=== PATIENT | female | born 1990 | race Caucasian/White ===

== ENCOUNTER 2017-01-05 06:33 | Outpatient (CLI) ==
[2015-09-08 11:12] VITALS: BMI 17.2
[2017-01-05 08:34] LABS: BASOPHILS % (AUTO) 0.6 % (0.0-3.0); EOSINOPHILS # (AUTO) 0.1 K/ul (0.0-0.7); EOSINOPHILS % (AUTO) 2.4 % (0.0-7.0); HEMATOCRIT 35.6 % (37.0-47.0); HEMOGLOBIN 12.2 g/dl (12.0-16.0); IMMATURE GRANULOCYTE % (AUTO) 0.9 % (0.0-5.0); IMMATURE RETIC FRACTION 11.2; LYMPHOCYTES # (AUTO) 0.8 K/uL (0.60-3.4); LYMPHOCYTES % (AUTO) 15.3 (10.0-50.0); MEAN CORPUSCULAR HEMOGLOBIN 32.2 pg (27.0-31.0); MEAN CORPUSCULAR HGB CONC 34.3 (31.8-35.4); MEAN CORPUSCULAR VOLUME 93.9 fl (81.0-99.0); MONOCYTES # (AUTO) 0.4 K/uL (0.4-2.0); MONOCYTES % (AUTO) 6.5 (0-10); NEUTROPHILS % (AUTO) 74.3; PLATELET COUNT 116 10^3/uL (140-440); RED BLOOD COUNT 3.79 10^6/ul (4.20-5.40); RETICULOCYTE % 1.52 %; WHITE BLOOD COUNT 5.41 K/ul (4.6-10.2)
--- NOTE | 2017-01-05 09:09 | ECHO2D ---
Date of Exam: 01/05/17 [facility] Reason for Echo: HEART MURMUR, HEART SURGERY M-Mode Normal Adult Results LV Dimensions Normal Adult Results AoV Opening excursions >1.6 >1.6 LVEDD-base- 3.5-5.8 5.1 Ao root dimensions 2.0-3.7 4.0 LVESD-base- 3.1-4.6 L. Atrium dimensions 1.9-3.8 2.8 Post. Wall thickness 0.8-1.1 0.9 IV septum (thickness) 0.7-1.2 0.8 Post. Wall excursion 0.72-1.3 NORMAL Septal motion NORMAL Systolic motion R. Ventricular cavity 1.5-2.0 NORMAL LVEF 60% 59% Paradoxical septal wall motion NORMAL 2-D : MITRAL VALVE PROLAPSE NOTED--LATE SYSTOLIC, NORMAL LEFT VENTRICULAR CONTRACTILITY--NO EFFUSION, NO THROMBUS, NORMAL LEFT VENTRICLE AND LEFT ATRIAL SIZE COLOR FLOW: MODERATE AORTIC STENOSIS M-MODE: MV: MITRAL VALVE PROLAPSE--LATE SYSTOLIC AV: NORMAL TV: NORMAL PV: CHAMBER SIZE: NORMAL WALL MOTION: NORMAL PERICARDIUM: NORMAL INTERPRETATION: 1. MITRAL VALVE PROLAPSE--LATE SYSTOLIC 2. MODERATE AORTIC REGURGITATION 3. MILDLY DILATED AORTIC ROOT 4. NORMAL LEFT VENTRICULAR CONTRACTILITY MTDD
[2017-01-05 09:28] LABS: ALANINE AMINOTRANSFERASE < 6 U/L (12-78); ALBUMIN 4.1 g/dL (3.4-5.0); ALBUMIN/GLOBULIN RATIO 1.32; ALKALINE PHOSPHATASE 68 U/L (42-98); ASPARTATE AMINO TRANSFERASE 13 U/L (15-37); BILIRUBIN,TOTAL 1.07 mg/dL (0.00-1.20); BLOOD UREA NITROGEN 12 mg/dL (7-18); BUN/CREATININE RATIO 15.58; CALCIUM 9.2 mg/dL (8.2-10.2); CARBON DIOXIDE 29 mmol/L (21-32); CHLORIDE 102 mmol/L (98-107); CHOL/HDL RATIO 2.9 (4.5-5.5); CHOLESTEROL 181 mg/dL (0-200); CREATININE 0.77 mg/dL (0.60-1.30); FERRITIN 29.41 ng/mL (4.63-204.00); FOLATE 7.5 ng/mL (3.1-20.5); GLUCOSE 84 mg/dL (70-110); HDL CHOLESTEROL 63 mg/dL (35-80); IRON 96 ug/dL (50-170); SODIUM 140 mmol/L (136-145); TOTAL IRON BINDING CAPACITY 289 ug/dL (240-450); TOTAL PROTEIN 7.2 g/dL (6.4-8.2); TRIGLYCERIDES 85 mg/dL (30-150); VLDL CHOLESTEROL 17 mg/dL (2-30)
[2017-01-06 07:28] LABS: TRANSFERRIN 244 mg/dL (200-370)
== END 2017-01-05 06:34 | disposition home or self-care (01) ==
LOC: CAR 06:33
PROVIDERS: ATTEND Nurse Practitioner Family
DX: R19.5 Other fecal abnormalities (principal); R63.4 Abnormal weight loss; Z86.2 Personal history of diseases of the blood and blood-forming organs and certain disorders involving the immune mechanism; R01.1 Cardiac murmur, unspecified; Z98.890 Other specified postprocedural states
CPT/HCPCS: 36415; 80053; 80061; 82607; 82728; 82746; 83540; 83550; 84443; 84466; 85025; 85045; 87015; 87045; 87899; 89055

== ENCOUNTER → 2017-02-23 | Outpatient (POV) ==
[2015-09-08 11:12] VITALS: BMI 17.2
== END ==
LOC: OUTPT 00:01
PROVIDERS: ATTEND Otolaryngology
DX: H91.90 Unspecified hearing loss, unspecified ear (principal)

== ENCOUNTER 2017-04-15 16:21 | Outpatient (CLI) ==
[2015-09-08 11:12] VITALS: BMI 17.2
[2017-04-15 16:36] LABS: BASOPHILS % (AUTO) 0.4 % (0.0-3.0); EOSINOPHILS # (AUTO) 0.1 K/ul (0.0-0.7); EOSINOPHILS % (AUTO) 2.3 % (0.0-7.0); HEMATOCRIT 37.8 % (37.0-47.0); HEMOGLOBIN 12.9 g/dl (12.0-16.0); IMMATURE GRANULOCYTE % (AUTO) 0.2 % (0.0-5.0); LYMPHOCYTES # (AUTO) 1.3 K/uL (0.60-3.4); LYMPHOCYTES % (AUTO) 24.5 (10.0-50.0); MEAN CORPUSCULAR HEMOGLOBIN 32.3 pg (27.0-31.0); MEAN CORPUSCULAR HGB CONC 34.1 (31.8-35.4); MEAN CORPUSCULAR VOLUME 94.7 fl (81.0-99.0); MONOCYTES # (AUTO) 0.3 K/uL (0.4-2.0); MONOCYTES % (AUTO) 6.5 (0-10); NEUTROPHILS # (AUTO) 3.5 K/ul (2.0-6.9); NEUTROPHILS % (AUTO) 66.1; PLATELET COUNT 134 10^3/uL (140-440); RED BLOOD COUNT 3.99 10^6/ul (4.20-5.40); WHITE BLOOD COUNT 5.23 K/ul (4.6-10.2)
[2017-04-15 16:54] LABS: ALANINE AMINOTRANSFERASE < 6 U/L (12-78); ALBUMIN 4.1 g/dL (3.4-5.0); ALBUMIN/GLOBULIN RATIO 1.11; ALKALINE PHOSPHATASE 60 U/L (42-98); ANION GAP 17.7; ASPARTATE AMINO TRANSFERASE 17 U/L (15-37); BILIRUBIN,TOTAL 0.67 mg/dL (0.00-1.20); BLOOD UREA NITROGEN 10 mg/dL (7-18); BUN/CREATININE RATIO 13.15; CALCIUM 9.2 mg/dL (8.2-10.2); CARBON DIOXIDE 20 mmol/L (21-32); CHLORIDE 106 mmol/L (98-107); CREATININE 0.76 mg/dL (0.60-1.30); GLUCOSE 73 mg/dL (70-110); POTASSIUM 3.7 mmol/L (3.5-5.10); SODIUM 140 mmol/L (136-145); TOTAL PROTEIN 7.8 g/dL (6.4-8.2)
== END 2017-04-15 16:22 | disposition home or self-care (01) ==
LOC: LAB 16:21
PROVIDERS: ATTEND Nurse Practitioner Family
DX: D61.818 Other pancytopenia (principal); E53.8 Deficiency of other specified B group vitamins
CPT/HCPCS: 36415; 80053; 82607; 85025

== ENCOUNTER 2017-07-29 10:44 | Outpatient (CLI) ==
[2015-09-08 11:12] VITALS: BMI 17.2
--- NOTE | 2017-07-29 13:00 | CT ---
EXAM: CT chest without contrast HISTORY: Shortness of breath COMPARISON: 09/08/2015 TECHNIQUE: CT chest performed without intravenous contrast. Coronal and sagittal reformatted images obtained. FINDINGS: Thoracic inlet unremarkable. Heart normal in size. Ectasia ascending thoracic aorta marilin uring up to 3.7 cm, unchanged. There aberrant origin of the right subclavian artery that courses pos terior to the esophagus. Evaluation for lymphadenopathy limited without contrast. No lymphadenopath y identified. Granulomatous calcification. Visualized portion upper abdomen demonstrates no acute a bnormality. No acute abnormalities of the bones. Central airway patent. Mild bibasilar subsegmenta l atelectasis. No airspace consolidation. No pleural effusion. No pneumothorax. IMPRESSION: 1. Mild bibasilar subsegmental atelectasis. Otherwise, no acute cardiopulmonary process. 2. Ectasia ascending aorta measuring up to 3.7 cm, unchanged. 3. Aberrant origin of the right subclavian artery noted.
== END 2017-07-29 10:45 | disposition home or self-care (01) ==
LOC: RAD 10:44
PROVIDERS: ATTEND Emergency Medicine
DX: R00.2 Palpitations (principal); R10.84 Generalized abdominal pain; R06.02 Shortness of breath; I35.1 Nonrheumatic aortic (valve) insufficiency; Z86.69 Personal history of other diseases of the nervous system and sense organs; Z98.890 Other specified postprocedural states
CPT/HCPCS: 36415; 80053; 81025; 84436; 84443; 84479; 85025

== ENCOUNTER 2017-08-05 11:30 | Outpatient (CLI) ==
[2015-09-08 11:12] VITALS: BMI 17.2
--- NOTE | 2017-08-05 12:55 | CT ---
EXAM: CT of the abdomen pelvis without contrast History: Generalized abdominal pain. Comparison: CT abdomen pelvis 10/10/2015 CT abdomen pelvis 02/04/2013 Technique: Multiplanar CT images through the abdomen pelvis were obtained without the administration of IV contrast Findings: Lung bases are clear. No acute osseous abnormalities. There is a 2.4 cm x 1.0 cm air fill ed structure adjacent to the distal esophagus which is not significantly changed since 2012. No renal stones and no hydronephrosis. The appendix is not dilated or inflamed. Scattered colonic s tool. Mildly distended loops of both large and small bowel but no specific evidence for bowel obstru ction. No free air. No ascites. No bladder wall thickening. Evaluation of the adnexal structures is limited due to lack of contrast administration but demonstrate no gross abnormality. Air is seen in the vagina and cervix. No peripa ncreatic inflammation. Adrenal glands are unremarkable. No focal liver or splenic lesions. No infl ammatory stranding. Impression: 1. Mild ileus but no evidence for bowel obstruction. 2. No inflammatory process. 3. No change in the air-filled structure adjacent to the distal esophagus could represent diverticul um.
== END 2017-08-05 11:31 | disposition home or self-care (01) ==
LOC: RAD 11:30
PROVIDERS: ATTEND Emergency Medicine
DX: R10.84 Generalized abdominal pain (principal)

== ENCOUNTER 2017-08-19 12:29 | Outpatient (CLI) ==
[2015-09-08 11:12] VITALS: BMI 17.2
== END 2017-08-19 12:30 | disposition home or self-care (01) ==
LOC: RHC-LAB 12:29
PROVIDERS: ATTEND Nurse Practitioner Family
DX: R53.83 Other fatigue (principal)
CPT/HCPCS: 36415; 82607; 82728; 82746; 83540; 83550; 84466; 85007; 85025; 85045

== ENCOUNTER 2017-09-20 12:44 | Outpatient (CLI) ==
[2015-09-08 11:12] VITALS: BMI 17.2
== END 2017-09-20 12:45 | disposition home or self-care (01) ==
LOC: CAR 12:44
PROVIDERS: ATTEND Emergency Medicine
DX: R00.2 Palpitations (principal)
CPT/HCPCS: 93227

== ENCOUNTER 2017-10-29 10:39 | Outpatient (CLI) ==
[2015-09-08 11:12] VITALS: BMI 17.2
--- NOTE | 2017-10-29 11:15 | DI ---
EXAM: Two views of the chest. History: Chest pain. Comparison: Chest CT 07/30/2017, chest radiograph 12/24/2014 Findings: Heart size is normal. No focal consolidation. No appreciable pleural fluid and no pneumo thorax. No acute osseous abnormalities. Impression: No acute cardiopulmonary process
--- NOTE | 2017-10-29 11:46 | DI ---
EXAM: Three views of the left ribs. History: Left rib pain. Comparison: Chest radiograph 10/29/2017 Findings: Heart size is normal. Lungs are free of consolidation. No pleural fluid and no pneumotho rax. No rib fractures are identified. There is an S-shaped scoliosis centered within the lower thor acic spine. 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
--- NOTE | 2017-10-29 11:49 | DI ---
EXAM: Three views of the left elbow. History: Left elbow pain. Findings: No acute fracture or dislocation. No abnormal calcifications or radiopaque foreign bodies . Joint spaces are preserved. Mild posterior soft tissue swelling. Impression: No acute osseous abnormality. Mild posterior soft tissue swelling.
== END 2017-10-29 10:40 | disposition home or self-care (01) ==
LOC: RAD 10:39
PROVIDERS: ATTEND Emergency Medicine
DX: R07.2 Precordial pain (principal); R07.81 Pleurodynia; M25.522 Pain in left elbow

== ENCOUNTER 2017-11-12 12:15 | Outpatient (CLI) ==
[2015-09-08 11:12] VITALS: BMI 17.2
== END 2017-11-12 12:16 | disposition home or self-care (01) ==
LOC: RHC-LAB 12:15
PROVIDERS: ATTEND Emergency Medicine
DX: M54.6 Pain in thoracic spine (principal); D61.818 Other pancytopenia
CPT/HCPCS: 36415; 85025

== ENCOUNTER 2018-02-10 08:56 | Outpatient (CLI) ==
[2015-09-08 11:12] VITALS: BMI 17.2
--- NOTE | 2018-02-10 11:49 | MRI ---
EXAM: MRI brain without and with IV contrast. DATE: 10 February 2018. HISTORY: Epilepsy, non intractable. Seizures. TECHNIQUE: Sagittal T1W pre and postcontrast, axial T2W, axial FLAIR, axial T1W pre and postcontrast , axial DWI, coronal T1W postcontrast, and coronal T2W GRE sequences of the brain were obtained using 1.2 Trini magnet. Additional coronal thin slice FLAIR sequence through the temporal lobes was perfo rmed. CONTRAST: Omniscan - 8 ml IV. COMPARISON: CT head 08 Sep 2015. MRI brain 01 January 2016. FINDINGS: The ventricles, cisterns, and subarachnoid spaces are normal in size and configuration. N o midline shift, mass effect or abnormal extra-axial fluid collection is apparent. No acute infarct, hemorrhage or enhancing neoplasm is identified. No abnormal contrast enhancement is identified in t he brain, meninges or dura. Several 2-5 mm diameter, T2W/FLAIR bright, non-enhancing foci scattered in the babin radiata and subcortical white matter bilaterally are similar to December 2015. The knowles - white matter differentiation is normal. No migration or diverticulation abnormality is identified. The amygdala, hippocampus, and parahippocampal gyri are similar bilaterally. The 7th/8th cranial n erve complexes, cerebellopontine angles, brainstem, and visible cervical spinal cord are normal. Cer ebellar tonsils extend near the inferior margin of the foramen magnum. There is no cerebellar tonsil lar ectopia. The pituitary gland is normal in size and signal. Corpus callosum is normal in size an d configuration. Right vertebral artery appears to be a tube in size. Flow voids are present in the major intracranial arteries and in the dural venous sinuses. No aneurysm, AVM or dural venous sinus thrombosis is apparent. No orbit abnormality is identified. The mastoid air cells are unremarkable . There is multiple ethmoid air cells are opacified. Minor/mild mucosal thickening is seen in the i nferior aspect of each maxillary sinus. No neck mass or lymphadenopathy is detected. No calvarial n eoplasm or acute fracture is evident. IMPRESSIONS: 1. No acute infarct, hemorrhage, enhancing neoplasm, or hydrocephalus. 2. No convincing evidence of mesial temporal sclerosis. 3. Minor, nonspecific cerebral leukomalacia similar to December 2015. 4. 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
== END 2018-02-10 08:57 | disposition home or self-care (01) ==
LOC: RAD 08:56
PROVIDERS: ATTEND Psychiatry & Neurology Neurology
DX: G40.909 Epilepsy, unspecified, not intractable, without status epilepticus (principal); Z79.899 Other long term (current) drug therapy
CPT/HCPCS: 36415; 82565

== ENCOUNTER 2018-02-24 12:41 | Outpatient (CLI) ==
[2015-09-08 11:12] VITALS: BMI 17.2
--- NOTE | 2018-02-24 16:49 | DI ---
Exam: Left tibia and fibula two-view. HISTORY: Pain and left lower leg. Findings/impressions: Anterior and lateral images of the left tibia and fibula are submitted, four i mages in total. These demonstrate no acute fracture or dislocation. There is no osseous erosion or radiodense foreign body. Pain: The alignment appears maintained. There is no focal soft tissue swe lling.
--- NOTE | 2018-02-24 16:51 | DI ---
Exam: Left foot three-view. HISTORY: Pain in left lower leg. FINDINGS: Three views of the left foot demonstrate no evidence of acute fracture or dislocation. Th ere is no osseous erosion or radiodense foreign body. There is no significant soft tissue swelling v isualized. IMPRESSION: No acute fracture or dislocation involving the left foot.
== END 2018-02-24 12:42 | disposition home or self-care (01) ==
LOC: RAD 12:41
PROVIDERS: ATTEND Nurse Practitioner Family
DX: M79.662 Pain in left lower leg (principal); M79.672 Pain in left foot

== ENCOUNTER 2018-03-15 14:54 | Emergency (ER) ==
[2018-03-15 14:59] VITALS: BP 97/66; TEMP 99.4; BMI 16.8
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
== END 2018-03-15 20:00 | disposition left against medical advice (07) ==
LOC: ED 14:54
DX: T74.21XA Adult sexual abuse, confirmed, initial encounter (principal); R07.89 Other chest pain; R10.9 Unspecified abdominal pain; D64.9 Anemia, unspecified
CPT/HCPCS: 36415; 80053; 85025; 99283

== ENCOUNTER 2018-06-03 14:00 | Emergency (ER) ==
[2018-06-03 14:14] VITALS: BP 94/69; TEMP 98.4; BMI 16.1
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
== END 2018-06-03 15:58 | disposition home or self-care (01) ==
LOC: ED 14:00
DX: N39.0 Urinary tract infection, site not specified (principal); T76.21XA Adult sexual abuse, suspected, initial encounter; R30.0 Dysuria
CPT/HCPCS: 36415; 81001; 87086; 87186; 87389; 87800; 99283

== ENCOUNTER 2018-06-03 14:41 | Outpatient (CLI) ==
[2018-06-03 14:14] VITALS: BMI 16.1
== END 2018-06-03 14:42 | disposition home or self-care (01) ==
LOC: RHC-LAB 14:41 → FCC-LAB 14:42
PROVIDERS: ATTEND Family Medicine
DX: R30.0 Dysuria (principal)
CPT/HCPCS: 87086; 87186

== ENCOUNTER 2018-06-15 09:47 | Emergency (ER) ==
[2018-06-15 09:54] VITALS: BP 95/63; TEMP 99; BMI 16.3
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
== END 2018-06-15 12:12 | disposition home or self-care (01) ==
LOC: ED 09:47
DX: S80.11XA Contusion of right lower leg, initial encounter (principal); W50.0XXA Accidental hit or strike by another person, initial encounter
CPT/HCPCS: 99283

== ENCOUNTER 2018-06-23 11:47 | Outpatient (CLI) | END 2018-06-23 11:48 | disposition home or self-care (01) | LOC: RHC-LAB 11:47 → FCC-LAB 11:48 | PROVIDERS: ATTEND Nurse Practitioner Family | DX: R30.0 Dysuria (principal) | CPT/HCPCS: 81001; 87086 ==

== ENCOUNTER 2018-06-29 08:16 | Outpatient (CLI) ==
--- NOTE | 2018-06-29 08:52 | US ---
EXAM: Bilateral breast ultrasound. History: Bilateral breast palpable abnormalities. Technique: Multiple sonographic images through the bilateral breasts were obtained. Color duplex Do ppler was used to interrogate vascular flow. Findings: No masses, cysts or fluid collections identified. Impression: No sonographic abnormalities. Follow-up with ACR/ACS guidelines. BIRADS 1, negative
== END 2018-06-29 08:17 | disposition home or self-care (01) ==
LOC: RAD 08:16
PROVIDERS: ATTEND Nurse Practitioner Family
DX: N63.12 Unspecified lump in the right breast, upper inner quadrant (principal); N63.22 Unspecified lump in the left breast, upper inner quadrant; N63.0 Unspecified lump in unspecified breast; N64.4 Mastodynia

== ENCOUNTER 2018-08-16 10:47 | Outpatient (CLI) ==
[2018-08-16 11:02] VITALS: BMI 15.7
== END 2018-08-16 10:53 | disposition critical access hospital (66) ==
LOC: AMBL 10:47
PROVIDERS: ATTEND Emergency Medicine
DX: M25.552 Pain in left hip (principal); M54.5 Low back pain; M25.571 Pain in right ankle and joints of right foot; V09.9XXA Pedestrian injured in unspecified transport accident, initial encounter

== ENCOUNTER 2018-08-16 10:57 | Emergency (ER) ==
[2018-08-16 11:02] VITALS: BP 99/73; TEMP 97.2; BMI 15.7
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
[2018-08-16 11:55] LABS: URINE PREGNANCY TEST NEGATIVE (NEGATIVE)
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
--- NOTE | 2018-08-16 12:30 | DI ---
EXAM: Three views of the thoracic spine. History: Thoracic back trauma. Findings: Scoliosis. No acute fracture or subluxation of the thoracic spine. Disc space heights ar e preserved. Impression: No acute osseous abnormality
--- NOTE | 2018-08-16 12:30 | DI ---
EXAM: Two views of the chest. History: Upper posterior chest wall pain. Comparison: Chest radiograph 10/29/2017 Findings: Heart size is normal. No focal consolidation. No appreciable pleural fluid and no pneumo thorax. No acute osseous abnormalities. Nonspecific air distended loops of bowel within the upper a bdomen. Impression: No acute cardiopulmonary process
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
== END 2018-08-16 12:50 | disposition home or self-care (01) ==
LOC: ED 10:57
DX: M25.571 Pain in right ankle and joints of right foot (principal); M54.6 Pain in thoracic spine; R07.89 Other chest pain; S90.31XA Contusion of right foot, initial encounter; S96.911A Strain of unspecified muscle and tendon at ankle and foot level, right foot, initial encounter; S29.019A Strain of muscle and tendon of unspecified wall of thorax, initial encounter
CPT/HCPCS: 36415; 80053; 81001; 81025; 85007; 85025; 87086; 99283

== ENCOUNTER 2018-08-31 12:33 | Emergency (ER) ==
[2018-08-31 12:43] VITALS: BP 98/69; TEMP 99.1; BMI 15.6
[2018-08-31 13:38] LABS: URINE PREGNANCY TEST NEGATIVE (NEGATIVE)
--- NOTE | 2018-08-31 14:25 | CT ---
EXAM: CT abdomen pelvis without contrast HISTORY: Vomiting, weakness, abdominal pain, worms and stool COMPARISON: 08/06/2079 TECHNIQUE: CT abdomen pelvis performed without intravenous contrast. Coronal and sagittal reformatt ed images obtained. FINDINGS: Lung bases clear. No free air. No acute abnormalities of the bones. Limbus vertebra L5. The heart normal in size. Evaluation organ parenchyma limited without contrast. Liver unremarkabl e. Gallbladder unremarkable. Pancreas unremarkable. Spleen unremarkable. Adrenals unremarkable. Kidneys unremarkable. No calculi visualized in normal course of the ureters. Bladder only mildly di stended and poorly very, grossly unremarkable. Uterus unremarkable. Aorta normal in caliber. No ly mphadenopathy or ascites. Similar appearing air-filled structure adjacent to the distal esophagus. Stomach unremarkable. No dilated loops small bowel. Increased densities in the appendix may relate to retains secretions versus appendicolith. Appendix otherwise appears normal with no evidence for a ppendicitis. Colon unremarkable. No inflammatory stranding identified in the abdomen pelvis. IMPRESSION: 1. No acute abnormality identified in the abdomen or pelvis. 2. Similar appearing air-filled structure adjacent to the distal esophagus could relate to a diverti culum. 3. Increased densities in the appendix may relate to retained secretions versus appendicolith. No e vidence for appendicitis.
--- NOTE | 2018-08-31 14:49 | ED.PDOC ---
General ED Provider: Dr. BETZAIDA WOOD Chief Complaint: Abdominal Pain Stated Complaint: ABDOMINAL PAIN MAY HAVE SEEN SOME WORMS IN STOOL Time Seen by Physician: 12:40 Mode of Arrival: Walk-In Information Source: Patient Exam Limitations: No limitations Primary Care Provider: CHARLEE ALEXIS Nursing and Triage Documentation Reviewed and Agree: Yes Does patient meet sepsis criteria?: No System Inflammatory Response Syndrome: Not Applicable Sepsis Protocol: For patient's 13 years and over: Temp is 96.8 and below OR 101 and greater Pulse >90 BPM Resp >20/minute Acutely Altered Mental Status Are patient's symptoms suggestive of a new infection, such as: -Pneumonia -Skin, Soft Tissue -Endocarditis -UTI -Bone, Joint Infection -Implantable Device -Acute Abdominal Infection -Wound Infection -Meningitis -Blood Stream Catheter Infection -Unknown GI Complaint Exam - Abdominal Pain Complaint/Exam Onset: Gradual Duration: 2 DAYS Initial Severity: Moderate Current Severity: None Location of Pain: Diffuse Radiates To: Denies: Chest, Back, Flank, LLQ, RLQ Character: Reports: Dull Aggravating: Reports: None Alleviating: Reports: None Associated Signs and Symptoms: Denies: Diaphoresis, Fever, Cough, Chest pain, Dizziness, Back pain, Constipation (POSSIBLE WORMS NONE PRESENT TO md at visit ) , Blood in stool, Dysuria, Urinary frequency, Decreased urine output, Decreased appetite, Vaginal bleeding, Vaginal discharge, Nausea, Vomiting, Diarrhea, Sore throat, Decreased activity Related History: Reports: Similar episode (chronic issue) AAA Risk Factors: Reports: None Cardiac Risk Factors: Reports: None Ectopic Risk Factors: Reports: None Ovarian Torsion Risk Factors: Reports: None Surgical Obstruction Risk Factors: Reports: None Related Surgical History: Reports: None Abdominal Findings: Present: None Differential Diagnoses: Bowel Obstruction, Constipation, Gastroenteritis, PUD, UTI Review of Systems - Review Of Systems Constitutional: Reports: No symptoms Eyes: Reports: No symptoms Ears, Nose, Mouth, Throat: Reports: No symptoms Respiratory: Reports: No symptoms Cardiac: Reports: No symptoms GI: Reports: Abdominal pain : Reports: No symptoms Musculoskeletal: Reports: No symptoms Skin: Reports: No symptoms Neurological: Reports: No symptoms Endocrine: Reports: No symptoms Hematologic/Lymphatic: Reports: No symptoms All Other Systems: Reviewed and Negative Past Medical History - Past Medical History Previously Healthy: Yes Endocrine: Reports: None Cardiovascular: Reports: None Respiratory: Reports: None Hematological: Reports: Anemia ( jun 2013 hgb was 10.4) Gastrointestinal: Reports: None Genitourinary: Reports: None Neuro/Psych: Reports: Bipolar Disorder Musculoskeletal: Reports: None Cancer: Reports: None Last Menstrual Period: 08/22/18 - Surgical History General Surgical History: Reports: Unknown - Family History Family History: Reports: Unknown - Social History Smoking Status: Never smoker Hx Substance Use: No Alcohol Screening: None Physical Exam - Physical Exam Appearance: Well-appearing, No pain distress, Well-nourished Eyes: ROBBIE, EOMI, Conjunctiva clear ENT: Ears normal, Nose normal, Oropharynx normal Respiratory: Airway patent, Breath sounds clear, Breath sounds equal, Respirations nonlabored Cardiovascular: RRR, Pulses normal, No rub, No murmur GI/: Soft, Nontender, No masses, Bowel sounds normal, No Organomegaly Musculoskeletal: Normal strength, ROM intact, No edema, No calf tenderness Skin: Warm, Dry, Normal color Neurological: Sensation intact, Motor intact, Reflexes intact, Cranial nerves intact, Alert, Oriented Psychiatric: Affect appropriate, Mood appropriate Interpretation - Radiology Interpretation Radiology Interpretation By: Radiologist Radiology Results: No acute changes Re-Evaluation - Re-Evaluation Time of Re-Evaluation: 14:00 Status: Improved Vital Signs Stable: Yes Pain Level: 0 Appearance: NAD Lungs: Clear Skin: Warm and Dry Neuro: Alert and Oriented X3 CV: RRR Additional Comments: no stools produced in the - Re-Evaluation Time of Re-Evaluation: 14:50 Status: Improved Vital Signs Stable: Yes Pain Level: 0 Appearance: NAD Skin: Warm and Dry Neuro: Alert and Oriented X3 CV: RRR Critical Care Note - Critical Care Note Total Time (mins): 0 Course - Course Hematology/Chemistry: 08/31/18 13:10 08/31/18 13:10 Orders, Labs, Meds: Lab Review 08/31/18 08/31/18 08/31/18 13:10 13:10 13:15 WBC 4.07 L RBC 3.73 L Hgb 11.7 L Hct 34.5 L MCV 92.5 MCH 31.4 H MCHC 33.9 RDW Coeff of Aidan 11.9 Plt Count 112 L Immature Gran % (Auto) 0.2 Neut % (Auto) 70.6 Lymph % (Auto) 20.9 [place] % (Auto) 6.6 Eos % (Auto) 1.5 Baso % (Auto) 0.2 Immature Gran # (Auto) 0.0 Neut # (Auto) 2.9 Lymph # (Auto) 0.9 [place] # (Auto) 0.3 L Eos # (Auto) 0.1 Baso # (Auto) 0.0 Sodium 138.6 Potassium 3.72 Chloride 102.0 Carbon Dioxide 27.4 Anion Gap 12.92 BUN 10.2 Creatinine 0.79 Estimated GFR (MDRD) 87.00 BUN/Creatinine Ratio 12.91 Glucose 80.4 Calcium 8.74 Total Bilirubin 1.04 AST 18.2 ALT 7.0 Alkaline Phosphatase 52.1 Total Protein 6.89 Albumin 4.66 Globulin 2.23 Albumin/Globulin Ratio 2.08 Amylase 56.4 Lipase 64.3 Urine Color Yellow Urine Clarity Cloudy Urine pH 6.5 Ur Specific [place] 1.025 Urine Protein Trace Urine Glucose (UA) Negative Urine Ketones Negative Urine Blood Negative Urine Nitrite Positive Urine Bilirubin Negative Urine Urobilinogen 4.0 Ur Leukocyte Esterase 1+ Urine Microscopic WBC 5-10 Ur Squamous Epith Cells 30-50 Urine Bacteria 1+ Urine Mucus 1+ Urine Test 08/31/18 13:15 WBC RBC Hgb Hct MCV MCH MCHC RDW Coeff of Aidan Plt Count Immature Gran % (Auto) Neut % (Auto) Lymph % (Auto) [place] % (Auto) Eos % (Auto) Baso % (Auto) Immature Gran # (Auto) Neut # (Auto) Lymph # (Auto) [place] # (Auto) Eos # (Auto) Baso # (Auto) Sodium Potassium Chloride Carbon Dioxide Anion Gap BUN Creatinine Estimated GFR (MDRD) BUN/Creatinine Ratio Glucose Calcium Total Bilirubin AST ALT Alkaline Phosphatase Total Protein Albumin Globulin Albumin/Globulin Ratio Amylase Lipase Urine Color Urine Clarity Urine pH Ur Specific [place] Urine Protein Urine Glucose (UA) Urine Ketones Urine Blood Urine Nitrite Urine Bilirubin Urine Urobilinogen Ur Leukocyte Esterase Urine Microscopic WBC Ur Squamous Epith Cells Urine Bacteria Urine Mucus Urine Test Negative Orders Category Date Time Status AMYLASE Stat LAB 08/31/18 13:10 Completed CBC W/ AUTO DIFF Stat LAB 08/31/18 13:10 Completed COMPREHENSIVE METABOLIC PANEL Stat LAB 08/31/18 13:10 Completed LIPASE Stat LAB 08/31/18 13:10 Completed URINALYSIS C & S IF INDICATED Stat LAB 08/31/18 13:15 Completed URINE CULTURE Stat LAB 08/31/18 13:15 Received URINE Stat LAB 08/31/18 13:[address] ABDOMEN/PELVIS WO CONTRAST Stat RADS 08/31/18 12:55 Completed Vital Signs: Temp Pulse Resp BP Pulse Ox 08/31/18 12:36 99.1 F 84 18 98/69 99 Departure - Departure Time of Disposition: 14:50 Disposition: HOME SELF-CARE Discharge Problem: Abdominal pain Instructions: Abdominal Pain (ED) Condition: Good Pt referred to PMD for follow-up: Yes IPMP verified?: No Additional Instructions: Please call your Family Physician as soon as possible to schedule a follow-up appointment. Allergies/Adverse Reactions: Allergies Penicillins Adverse Reaction (Verified 08/31/18 12:43) Mother states that pt has never had a reaction to PNC but that mother had a severe reaction over 10 years ago so allergy was always listed on pt as well. Home Medications: Ambulatory Orders Lamotrigine [Lamictal] 75 mg PO BID 03/15/18 Ibuprofen 400 mg PO TID PRN #20 tablet 08/16/18 Disposition Discussed With: Patient
== END 2018-08-31 15:02 | disposition home or self-care (01) ==
LOC: ED 12:33
DX: R10.9 Unspecified abdominal pain (principal); D64.9 Anemia, unspecified
CPT/HCPCS: 36415; 80053; 81001; 81025; 82150; 82607; 82728; 82746; 83540; 83550; 83690; 84466; 85025; 85045; 87086; 87186; 99283

== ENCOUNTER 2018-12-18 16:06 | Outpatient (CLI) | payer OTHER ==
[2018-11-18 12:02] VITALS: BMI 16.1
== END 2018-12-18 16:26 | disposition short-term general hospital (02) ==
LOC: AMBL 16:06
PROVIDERS: ATTEND Family Medicine
DX: R56.9 Unspecified convulsions (principal); R41.0 Disorientation, unspecified; R73.9 Hyperglycemia, unspecified; R00.0 Tachycardia, unspecified

== ENCOUNTER 2019-01-14 20:43 | Outpatient (CLI) ==
[2019-01-10 12:11] VITALS: BMI 16.2
== END 2019-01-14 20:59 | disposition short-term general hospital (02) ==
LOC: AMBL 20:43
PROVIDERS: ATTEND Internal Medicine Geriatric Medicine
DX: T74.21XA Adult sexual abuse, confirmed, initial encounter (principal); R10.2 Pelvic and perineal pain; S79.922A Unspecified injury of left thigh, initial encounter; S79.921A Unspecified injury of right thigh, initial encounter; M79.622 Pain in left upper arm; M79.621 Pain in right upper arm; Y92.9 Unspecified place or not applicable

== ENCOUNTER 2020-10-23 12:55 | Observation (INO) ==
[2020-10-23] MEDS ORDERED: SODIUM CHLORIDE 500 ML IV STA (13:27)
[2020-10-23] MEDS ORDERED: ZOFRAN ODT PO ONE (13:27)
[2020-10-23] MEDS ORDERED: KEPPRA PO ONE (13:27)
[2020-10-23] MEDS ORDERED: TYLENOL PO ONE (13:27)
[2020-10-23 13:49] LABS: BASOPHILS % (AUTO) 0.4 % (0.0-3.0); EOSINOPHILS % (AUTO) 1.5 % (0.0-7.0); HEMATOCRIT 31.5 % (37.0-47.0); IMMATURE GRANULOCYTE % (AUTO) 0.4 % (0.0-5.0); LYMPHOCYTES % (AUTO) 15.4 (10.0-50.0); MEAN CORPUSCULAR HEMOGLOBIN 32.2 pg (27.0-31.0); MEAN CORPUSCULAR HGB CONC 34.9 (31.8-35.4); MEAN CORPUSCULAR VOLUME 92.1 fl (81.0-99.0); MONOCYTES # (AUTO) 0.1 K/uL (0.4-2.0); MONOCYTES % (AUTO) 5.3 (0-10); NEUTROPHILS # (AUTO) 2.1 K/ul (2.0-6.9); PLATELET COUNT 97 10^3/uL (140-440); RDW COEFFICIENT OF VARIATION 12.3 % (11.6-14.8); RED BLOOD COUNT 3.42 10^6/ul (4.20-5.40); WHITE BLOOD COUNT 2.66 K/ul (4.6-10.2)
[2020-10-23 13:55] LABS: ALANINE AMINOTRANSFERASE 6.8 U/L (0-35); ALBUMIN 3.93 g/dL (3.5-5.0); ALKALINE PHOSPHATASE 46.2 U/L (38-126); ASPARTATE AMINO TRANSFERASE 18.7 U/L (14-36); BILIRUBIN,TOTAL 0.53 mg/dL (0.2-1.3); BLOOD UREA NITROGEN 6.6 mg/dL (7-17); CALCIUM 8.3 mg/dL (8.4-10.2); CARBON DIOXIDE 22.1 mmol/L (22-30.0); CHLORIDE 108.6 mmol/L (98-107); CREATININE 0.76 mg/dL (0.60-1.30); GLUCOSE 89.2 mg/dL (74-106); LIPASE 87.7 U/L (23-300); POTASSIUM 3.88 mmol/L (3.5-5.1); SODIUM 138.6 mmol/L (134.5-145); TOTAL PROTEIN 6.05 g/dL (6.3-8.2)
--- NOTE | 2020-10-23 13:57 | ED.PDOC ---
General ED Provider: Dr. JOSÉ MIGUEL PICKETT MD Chief Complaint: Seizure Stated Complaint: pt had a seizure x this PM. she has been taking her seizure meds. Time Seen by Provider: 10/23/20 12:57 Mode of Arrival: Ambulance Information Source: Patient and EMT Exam Limitations: No limitations Primary Care Provider: KAMLESH JUAN Nursing and Triage Documentation Reviewed and Agree: Yes Does patient meet sepsis criteria?: No System Inflammatory Response Syndrome: Not Applicable Sepsis Protocol: For patient's 13 years and over: Temp is 96.8 and below OR 101 and greater Pulse >90 BPM Resp >20/minute Acutely Altered Mental Status Are patient's symptoms suggestive of a new infection, such as: -Pneumonia -Skin, Soft Tissue -Endocarditis -UTI -Bone, Joint Infection -Implantable Device -Acute Abdominal Infection -Wound Infection -Meningitis -Blood Stream Catheter Infection -Unknown Neurological Complaint Exam Seizure Complaint/Exam Onset/Duration: 1 hr Symptoms Are: Resolved Episodes Lasting: Minutes Single or Multiple Episode: single seizure Failed to Regain Consciousness: No Severity: Self-limited Location: All extremities Character: Generalized Alleviating: Reports Spontaneous resolution Associated Signs and Symptoms: Denies Anxiety, Emotional distress, Impaired speech, Bladder incontinence, Bowel incontinence, Trauma, Illness, Vomiting, Lethargy and Apnea Cephalohematoma Present: No Tongue Bitten: No Neck Pain Present: No Glascow Coma Scale (see protocol): 15 Nystagmus Present: No Gag Reflex Present: Yes Speech: Present Slurred (pt has slurred speech) Meningeal Signs Positive: No Focal Weakness: Present None Focal Sensory Loss: Reports None Gait: Normal Signs of Injury: Present Laceration Differential Diagnoses: Metabolic Disorder, Seizure and Seizure Disorder Review of Systems Review Of Systems Constitutional: Reports No symptoms Eyes: Reports No symptoms Ears, Nose, Mouth, Throat: Reports No symptoms Respiratory: Reports No symptoms Cardiac: Reports Chest pain GI: Reports Abdominal pain : Reports No symptoms Musculoskeletal: Reports No symptoms Skin: Reports No symptoms Neurological: Reports Headache Endocrine: Reports No symptoms Hematologic/Lymphatic: Reports No symptoms All Other Systems: Reviewed and Negative [facility] Medical History (Updated 10/23/20 @ 17:37 by JOSÉ MIGUEL PICKETT MD) Hypertension Migraines Seizure Social History Smoking and tobacco status: Never smoker Alcohol intake: never Substance use type: does not use Counseling given: No Counseling provided: none Nydia/adventism: OTHER Special nydia needs: No Agree to transfusion: Yes Adopted: No Caregiver/support person: No Foster care: No Household members: family and children Housing: house Marital status: S SINGLE Lives independently: No Daycare: no daycare Number of children: 2 Number of grandchildren: 0 Highest education level completed: high school graduate Financial difficulty paying for basics: somewhat hard service: No long term: No Current occupational status: disabled Current occupational exposures/hazards: No Sexually active: Yes Seatbelt use: always Drives intoxicated or rides with intoxicated school bus driver/teacher assistant: No Water heater temperature set < 120 degrees: Yes Working smoke detector in home: Yes Fire extinguisher in home: Yes Carbon monoxide detector in home: No Firearms in home: Yes Firearms unloaded and locked: Yes Physical activity functional status: independent ambulation Surgical History History of heart surgery History of musculoskeletal system surgery History of tubal ligation Female Reproductive History Menstrual Hx Hysterectomy: No Hx Tubal Ligation: Yes Physical Exam Physical Exam Appearance: Reports Well-appearing Ill-appearing: None Pain Distress: Mild Eyes: Reports ROBBIE, EOMI and Conjunctiva clear ENT: Reports Ears normal, Nose normal and Oropharynx normal Neck: Supple Respiratory: Reports Airway patent, Breath sounds clear and Breath sounds equal Cardiovascular: Reports RRR, Pulses normal, No rub and No murmur GI/: Reports Soft, Nontender, No masses, Bowel sounds normal and No Organomegaly Musculoskeletal: Reports Normal strength, ROM intact and No edema Skin: Reports Warm, Dry, Normal color and Pale Neurological: Reports Sensation intact, Motor intact, Reflexes intact, Cranial nerves intact, Alert and Oriented Psychiatric: Reports Affect appropriate and Mood appropriate Interpretation Radiology Interpretation Radiology Interpretation By: Radiologist Exam Interpreted: Portable CXR Re-Evaluation Re-Evaluation Time of Re-Evaluation: 13:56 Status: Improved Vital Signs Stable: Yes Pain Level: 1 Appearance: NAD Lungs: Clear Skin: Warm and Dry Neuro: Alert and Oriented X3 CV: RRR Critical Care Note Critical Care Note Total Critical Care Time (mins): 0 Course Course Hematology/Chemistry: 10/23/20 13:38 10/23/20 13:38 Orders, Labs, Meds: Lab Review 10/23/20 10/23/20 10/23/20 13:38 13:38 13:38 WBC 2.66 L RBC 3.42 L Hgb 11.0 L Hct 31.5 L MCV 92.1 MCH 32.2 H MCHC 34.9 RDW Coeff of Aidan 12.3 Plt Count 97 L Immature Gran % (Auto) 0.4 Neut % (Auto) 77.0 H Lymph % (Auto) 15.4 Barron % (Auto) 5.3 Eos % (Auto) 1.5 Baso % (Auto) 0.4 Neut # (Auto) 2.1 Lymph # (Auto) 0.4 L Barron # (Auto) 0.1 L Eos # (Auto) 0.0 Baso # (Auto) 0.0 Immature Gran # (Auto) 0.0 Sodium 138.6 Potassium 3.88 Chloride 108.6 H Carbon Dioxide 22.1 Anion Gap 11.78 BUN 6.6 L Creatinine 0.76 Estimated GFR (MDRD) 89.00 BUN/Creatinine Ratio 8.68 Glucose 89.2 Calcium 8.30 L Total Bilirubin 0.53 AST 18.7 ALT 6.8 Alkaline Phosphatase 46.2 Total Protein 6.05 L Albumin 3.93 Globulin 2.12 Albumin/Globulin Ratio 1.85 Lipase 87.7 Serum , Qual Negative Urine Color Urine Clarity Urine pH Ur Specific [place] Urine Protein Urine Glucose (UA) Urine Ketones Urine Blood Urine Nitrite Urine Bilirubin Urine Urobilinogen Ur Leukocyte Esterase Urine Microscopic WBC Ur Squamous Epith Cells Urine Bacteria Adenovirus (PCR) B. pertussis DNA (PCR) B.parapertussis DNA PCR C. pneumoniae DNA (PCR) Coronavirus OC43 (PCR) Coronavirus HKU1 (PCR) Coronavirus 229E (PCR) Coronavirus NL63 (PCR) Human Metapneumovir PCR Influenza Type A (PCR) Influenza B (RT-PCR) M. pneumoniae (PCR) Parainfluenza 1 (PCR) Parainfluenza 2 (PCR) Parainfluenza 3 (PCR) Parainfluenza 4 (PCR) RSV (PCR) Entero/Rhino (PCR) SARS-CoV-2 (PCR) 10/23/20 10/23/20 16:05 16:28 WBC RBC Hgb Hct MCV MCH MCHC RDW Coeff of Aidan Plt Count Immature Gran % (Auto) Neut % (Auto) Lymph % (Auto) Barron % (Auto) Eos % (Auto) Baso % (Auto) Neut # (Auto) Lymph # (Auto) Barron # (Auto) Eos # (Auto) Baso # (Auto) Immature Gran # (Auto) Sodium Potassium Chloride Carbon Dioxide Anion Gap BUN Creatinine Estimated GFR (MDRD) BUN/Creatinine Ratio Glucose Calcium Total Bilirubin AST ALT Alkaline Phosphatase Total Protein Albumin Globulin Albumin/Globulin Ratio Lipase Serum , Qual Urine Color Yellow Urine Clarity Slightly Urine pH 7.0 Ur Specific [place] 1.025 Urine Protein Negative Urine Glucose (UA) Negative Urine Ketones Negative Urine Blood Negative Urine Nitrite Negative Urine Bilirubin Negative Urine Urobilinogen 0.2 Ur Leukocyte Esterase 1+ H Urine Microscopic WBC 5-10 Ur Squamous Epith Cells 5-10 Urine Bacteria 1+ Adenovirus (PCR) Not detected B. pertussis DNA (PCR) Not detected B.parapertussis DNA PCR Not detected C. pneumoniae DNA (PCR) Not detected Coronavirus OC43 (PCR) Not detected Coronavirus HKU1 (PCR) Not detected Coronavirus 229E (PCR) Not detected Coronavirus NL63 (PCR) Not detected Human Metapneumovir PCR Not detected Influenza Type A (PCR) Not detected Influenza B (RT-PCR) Not detected M. pneumoniae (PCR) Not detected Parainfluenza 1 (PCR) Not detected Parainfluenza 2 (PCR) Not detected Parainfluenza 3 (PCR) Not detected Parainfluenza 4 (PCR) Not detected RSV (PCR) Not detected Entero/Rhino (PCR) Not detected SARS-CoV-2 (PCR) Not detected Orders Category Date Time Status EKG-(ED ONLY) Stat CARDIO 10/23/20 13:27 Completed ED IV/MEDIPORT/POWERPORT .ONCE EMERGENCY 10/23/20 13:27 Active BLOOD CULTURE (ED ONLY) Stat LAB 10/23/20 17:02 Received CBC W/ AUTO DIFF Stat LAB 10/23/20 13:38 Completed COMPREHENSIVE METABOLIC PANEL Stat LAB 10/23/20 13:38 Completed LIPASE Stat LAB 10/23/20 13:38 Completed RESPIRATORY PANEL 2.1 (PCR) Stat LAB 10/23/20 16:28 Completed SERUM Stat LAB 10/23/20 13:38 Completed URINALYSIS C & S IF INDICATED Stat LAB 10/23/20 16:05 Completed URINE CULTURE Stat LAB 10/23/20 16:05 Received 0.9 % Sodium Chloride [Saline Flush] MEDS 10/23/20 13:27 Active 1 syr IVF PRN PRN Acetaminophen [Tylenol] MEDS 10/23/20 13:27 Discontinued 650 mg PO ONCE ONE Azithromycin [Zithromax] MEDS 10/23/20 16:05 Discontinued 500 mg PO ONCE STA Ceftriaxone/D5w 1 gm Premix [Rocephin 1 gm/50 ml D5w] MEDS 10/23/20 16:05 Discontinued 1 gm in 50 ml IV ONCE Levetiracetam [Keppra] MEDS 10/23/20 13:27 Discontinued 500 mg PO ONCE ONE Ondansetron [Zofran Odt] MEDS 10/23/20 13:27 Discontinued 4 mg PO ONCE ONE Sodium Chloride 0.9% [Sodium Chloride] 500 ml MEDS 10/23/20 13:27 Discontinued IV BOLUS CHEST, 1V AP ONLY Stat RADS 10/23/20 13:[address] CHEST W/O CONTRAST Stat RADS 10/23/20 15:05 Completed HAND, LEFT 3 VIEWS Stat RADS 10/23/20 13:27 Completed Medications Generic Name Dose Route Start Last Admin Trade Name Freq PRN Reason Stop Dose Admin Sodium Chloride 1 syr 10/23/20 13:27 0.9% Sodium Chloride 10 Ml Disp.Syrin IVF PRN PRN To flush IV Discontinued Medications Generic Name Dose Route Start Last Admin Trade Name Freq PRN Reason Stop Dose Admin Acetaminophen 650 mg 10/23/20 13:27 10/23/20 13:50 Acetaminophen 325 Mg Tablet PO 10/23/20 13:28 650 mg ONCE ONE Administration Azithromycin 500 mg 10/23/20 16:05 10/23/20 16:56 Azithromycin 250 Mg Tablet PO 10/23/20 16:06 500 mg ONCE STA Administration Sodium Chloride 500 mls @ 500 mls/hr 10/23/20 13:27 10/23/20 13:56 Sodium Chloride IV 10/23/20 14:26 Not Given BOLUS STA CEFTRIAXONE/D5W 1 GM PREMIX 1 gm in 50 mls @ 75 mls/hr 10/23/20 16:05 10/23/20 16:56 Rocephin 1 Gm/50 Ml D5w IV 10/23/20 16:44 75 mls/hr ONCE ONE Administration Levetiracetam 500 mg 10/23/20 13:27 10/23/20 13:50 Levetiracetam 500 Mg Tablet PO 10/23/20 13:28 500 mg ONCE ONE Administration Ondansetron HCl 4 mg 10/23/20 13:27 10/23/20 13:50 Ondansetron Hcl 4 Mg Tab.Rapdis PO 10/23/20 13:28 4 mg ONCE ONE Administration Vital Signs: Temp Pulse Resp BP Pulse Ox 10/23/20 13:11 95 H 16 100/65 98 10/23/20 12:57 98.9 F 104 H 20 97/71 96 Discharge Plan Discharge Patient Disposition: PLACED OBSERVATION Discharge Problem: Seizure Pneumonia Qualifiers: Pneumonia type: due to unspecified organism Laterality: bilateral Lung location: upper lobe of lung Qualified Code(s): J18.9 - Pneumonia, unspecified organism ED Provider: JOSÉ MIGUEL PICKETT Condition: Serious Physician Progress Note: []Pt agreed to Observation for pneumonia.
[2020-10-23 13:59] LABS: SERUM PREGNANCY NEGATIVE (NEGATIVE)
[2020-10-23 14:02] LABS: LYMPHOCYTES # (AUTO) 0.4 K/uL (0.60-3.4)
--- NOTE | 2020-10-23 14:46 | DI ---
EXAM: Chest one view, frontal view only. HISTORY: Chest pain. COMPARISON: 11/24/2019. FINDINGS: The heart size is normal. There is no pulmonary vascular congestion. General haziness ov er the right upper lobe. Otherwise, the lungs are clear. No pleural effusion or pneumothorax is see n. No acute osseous abnormality is identified. IMPRESSION: Question right upper lobe pneumonia versus artifact. Follow-up recommended.
--- NOTE | 2020-10-23 14:46 | DI ---
EXAM: Radiographs, left hand HISTORY: Left hand pain, laceration. COMPARISON: None. TECHNIQUE: Three views. FINDINGS: Bone mineralization is normal. There is no fracture or dislocation. The joint spaces are maintained. No focal soft tissue abnormality is seen. IMPRESSION: No fracture or dislocation.
--- NOTE | 2020-10-23 16:00 | CT ---
EXAM: CT chest without contrast HISTORY: Right upper lobe pneumonia COMPARISON: Same day chest radiograph TECHNIQUE: Multiple axial images of the chest were obtained without contrast. Images were reformatte d in the sagittal and coronal planes. FINDINGS: Normal appearance thoracic inlet and thyroid gland. No enlarged axillary or mediastinal lymph nodes. Lack of IV contrast limits evaluation for hilar adenopathy. Normal heart size. Top normal size asc ending aorta measuring 3.5 cm. Esophagus within normal limits. Small/moderate hiatal hernia. Patent central airways. Generalized patchy right upper lobe and mild patchy left upper lobe ground-glass o pacities. No pneumothorax or pleural effusion. The No acute findings within the visualized upper abdomen. Nonobstructive 0.2 cm right renal calculus. No acute osseous abnormality. IMPRESSION: 1. Right greater than left upper lobe. Multifocal pneumonia. Follow-up to resolution recommended. 2. Top normal size ascending aorta measuring 3.5 cm. 3. Nonobstructive right renal calculus. All CT scans are performed using dose optimization techniques as appropriate to the performed exam an d include at least one of the following: Automated exposure control, adjustment of the mA and/or kV according t o size, and the use of iterative reconstruction technique.
[2020-10-23] MEDS ORDERED: ROCEPHIN 1 GM/50 ML D5W 1 GM/50 ML BAG IV ONE (16:05)
[2020-10-23] MEDS ORDERED: ZITHROMAX PO STA (16:05)
[2020-10-23 16:09] LABS: BILIRUBIN,URINE Negative (NEGATIVE); CLARITY,URINE Slightly (CLEAR); COLOR,URINE Yellow (YELLOW); GLUCOSE, URINE (UA) Negative (NEGATIVE); KETONES,URINE Negative (NEGATIVE); LEUKOCYTE ESTERASE ,URINE 1+ (NEGATIVE); NITRITE,URINE Negative (NEGATIVE); PROTEIN,URINE Negative (NEGATIVE); URINE, BLOOD Negative (NEGATIVE); UROBILINOGEN,URINE 0.2 (0.2)
[2020-10-23 16:13] LABS: BACTERIA,URINE 1+ (NOT PRESENT)
[2020-10-23 16:32] LABS: BORDETELLA PARAPERTUSSIS (PCR) NOT DETECTED (NOT DETECT); BORDETELLA PERTUSSIS (PCR) NOT DETECTED (NOT DETECT); CHLAMYDIA PNEUMONIAE (PCR) NOT DETECTED (NOT DETECT); CORONAVIRUS 229E (PCR) NOT DETECTED (NOT DETECT); CORONAVIRUS HKU1 (PCR) NOT DETECTED (NOT DETECT); CORONAVIRUS NL63 (PCR) NOT DETECTED (NOT DETECT); CORONAVIRUS OC43 (PCR) NOT DETECTED (NOT DETECT); HUMAN METAPNEUMOVIRUS (PCR) NOT DETECTED (NOT DETECT); HUMAN RHINOVIRUS/ENTEROV (PCR) NOT DETECTED (NOT DETECT); INFLUENZA B (PCR) NOT DETECTED (NOT DETECT); MYCOPLASMA PNEUMONIAE (PCR) NOT DETECTED (NOT DETECT); PARAINFLUENZA VIRUS 1 (PCR) NOT DETECTED (NOT DETECT); PARAINFLUENZA VIRUS 2 (PCR) NOT DETECTED (NOT DETECT); PARAINFLUENZA VIRUS 3 (PCR) NOT DETECTED (NOT DETECT); PARAINFLUENZA VIRUS 4 (PCR) NOT DETECTED (NOT DETECT); RESPIRATORY SYNCYTIAL V (PCR) NOT DETECTED (NOT DETECT); SARS_COV_2 (PCR) NOT DETECTED (NOT DETECT)
[2020-10-23 17:20] LABS: ADENOVIRUS (PCR) NOT DETECTED (NOT DETECT)
[2020-10-23] MEDS ORDERED: ALBUTEROL 0.083% NEB NEB SCH (18:00)
[2020-10-23 18:27] VITALS: BMI 15.0
[2020-10-23] MEDS: ALBUTEROL 0.083% NEB NEB SCH (19:41)
[2020-10-23] MEDS: LAMICTAL PO SCH (20:56)
[2020-10-23] MEDS: TYLENOL PO PRN (20:57)
[2020-10-24] MEDS: ALBUTEROL 0.083% NEB NEB SCH ×4 (04:45→19:50)
[2020-10-24 05:25] LABS: BASOPHILS % (AUTO) 0.2 % (0.0-3.0); EOSINOPHILS # (AUTO) 0.1 K/ul (0.0-0.7); EOSINOPHILS % (AUTO) 2.7 % (0.0-7.0); HEMATOCRIT 32.9 % (37.0-47.0); HEMOGLOBIN 11.4 g/dl (12.0-16.0); IMMATURE GRANULOCYTE % (AUTO) 0.2 % (0.0-5.0); LYMPHOCYTES # (AUTO) 0.9 K/uL (0.60-3.4); MEAN CORPUSCULAR HEMOGLOBIN 32.7 pg (27.0-31.0); MEAN CORPUSCULAR HGB CONC 34.7 (31.8-35.4); MEAN CORPUSCULAR VOLUME 94.3 fl (81.0-99.0); MONOCYTES # (AUTO) 0.2 K/uL (0.4-2.0); MONOCYTES % (AUTO) 4.9 (0-10); NEUTROPHILS # (AUTO) 2.9 K/ul (2.0-6.9); PLATELET COUNT 90 10^3/uL (140-440); RDW COEFFICIENT OF VARIATION 12.3 % (11.6-14.8); RED BLOOD COUNT 3.49 10^6/ul (4.20-5.40); WHITE BLOOD COUNT 4.09 K/ul (4.6-10.2)
[2020-10-24] MEDS: TYLENOL PO PRN ×2 (05:30→14:59)
[2020-10-24] MEDS ORDERED: ZITHROMAX 500 MG in SODIUM CHLORIDE 250 ML IV SCH (09:00)
[2020-10-24] MEDS ORDERED: KEPPRA PO SCH (09:00)
[2020-10-24] MEDS: ROCEPHIN 1 GM/50 ML D5W 1 GM/50 ML BAG IV SCH (09:40)
[2020-10-24] MEDS: ZITHROMAX PO SCH (09:42)
[2020-10-24] MEDS: LAMICTAL PO SCH (09:52)
[2020-10-24] MEDS: KEPPRA PO SCH ×2 (10:03→21:07)
[2020-10-24] MEDS: TOPAMAX PO SCH (10:03)
[2020-10-24] MEDS ORDERED: TOPAMAX PO SCH (21:00)
[2020-10-25] MEDS: ALBUTEROL 0.083% NEB NEB SCH ×3 (04:55→14:15)
--- NOTE | 2020-10-25 07:20 | PCM ---
Chief Complaint Chief Complaint: Seizure episode History of Present Illness History of Present Illness: This 30 year old Female patient was transported to the ER on 10/23/2020 by [place] she was observed having acute seizure episode. Stated was compliant with her seizure meds. After evaluation by Dr Wall in the ER, it was determined she has and acute pneumonia as well. It was deemed appropriate and necessary that she should be admitted to he hospitalist service for Observation and to initiate treatment for he pneumonia and monitor for additional neurological events. Appropriate standard of care initiated. History and Physical Examination completed at 1950 hrs on 10/24/2020 Review of Systems Constitutional: Reports Loss of appetite Eyes: Reports No symptoms; Denies Blurred vision, Double-vision, Discharge, Itching, Pain, Redness, Photophobia and Other Ears: Reports No symptoms Nose: Reports No symptoms Throat: Reports No symptoms Mouth: Reports No symptoms Respiratory: Reports Cough and Shortness of air Cardiovascular: Reports No symptoms Gastrointestinal: Reports No symptoms Genitourinary: Reports No symptoms Neurological: Reports Seizure, Weakness, Speech difficulty and Tremor Musculoskeletal: Reports No symptoms Skin: Reports No symptoms Immunology: Reports No symptoms Hematology: Reports No symptoms Endocrine: Reports No symptoms Psychiatric: Reports Depression and Anxiety Allergies Allergies Allergy/AdvReac Type Severity Reaction Status Date / Time Penicillins AdvReac Unknown Verified 10/23/20 13:06 [facility] Medical History (Updated 10/25/20 @ 07:49 by ODILIA CANNON DO) Anemia Anxiety Bipolar 1 disorder Hypertension Migraines Pneumonia Seizure disorder Surgical History History of heart surgery History of musculoskeletal system surgery History of tubal ligation Social History Smoking and tobacco status: Never smoker Alcohol intake: never Substance use type: does not use Counseling given: No Counseling provided: none Nydia/denominational: OTHER Special nydia needs: No Agree to transfusion: Yes Adopted: No Caregiver/support person: No Foster care: No Household members: family and children Housing: house Marital status: S SINGLE Lives independently: No Daycare: no daycare Number of children: 2 Number of grandchildren: 0 Highest education level completed: high school graduate Financial difficulty paying for basics: somewhat hard service: No alf: No Current occupational status: disabled Current occupational exposures/hazards: No Sexually active: Yes Seatbelt use: always Drives intoxicated or rides with intoxicated substitute bus driver: No Water heater temperature set < 120 degrees: Yes Working smoke detector in home: Yes Fire extinguisher in home: Yes Carbon monoxide detector in home: No Firearms in home: Yes Firearms unloaded and locked: Yes Physical activity functional status: independent ambulation Medications Medications: Medications Generic Name Dose Route Start Last Admin Trade Name Freq PRN Reason Stop Dose Admin Acetaminophen 650 mg 10/23/20 17:42 10/24/20 14:59 Acetaminophen 325 Mg Tablet PO 650 mg Q8H PRN Administration Mild/Moderate Pain Albuterol Sulfate 2.5 mg 10/23/20 20:00 10/25/20 04:55 Albuterol Sulfate 0.083% Vial.Neb NEB 2.5 mg RTQID BERNIE Administration Azithromycin 500 mg 10/24/20 09:00 10/24/20 09:42 Azithromycin 250 Mg Tablet PO 10/26/20 08:59 500 mg DAILY BERNIE Administration CEFTRIAXONE/D5W 1 GM PREMIX 1 gm in 50 mls @ 75 mls/hr 10/24/20 09:00 10/24/20 09:40 Rocephin 1 Gm/50 Ml D5w IV 10/27/20 08:59 75 mls/hr DAILY BERNIE Administration Levetiracetam 500 mg 10/24/20 09:48 10/24/20 21:07 Levetiracetam 500 Mg Tablet PO 500 mg BID BERNIE Administration Sodium Chloride 1 syr 10/23/20 13:27 10/24/20 05:30 0.9% Sodium Chloride 10 Ml Disp.Syrin IVF 1 syr PRN PRN Administration To flush IV Topiramate 50 mg 10/24/20 10:00 10/24/20 10:03 Topiramate 50 Mg Tablet PO 50 mg DAILY BERNIE Administration Topiramate 100 mg 10/24/20 21:00 10/24/20 21:06 Topiramate 50 Mg Tablet PO 100 mg BEDTIME BERNIE Administration Body Composition Height: 5 ft 5 in Weight: 90 lb 13.287 oz Body Mass Index (BMI): 15.0 Vital Signs Temperature: 98.9 F Pulse Rate: 65 Respiratory Rate: 16 Blood Pressure: 81/43 O2 Sat by Pulse Oximetry: 100 Physical Examination Appearance: Reports Well-appearing Ill-appearing: Mild Pain Distress: Not Applicable Eyes: Denies ROBBIE, EOMI, Conjunctiva clear, Conjunctiva inflammed, Conjunctiva pale, Right pupil size, Left pupil size, Other and Not Examined ENT: Denies Ears normal, Nose normal, Oropharynx normal, TMs Occluded, Rhinorrhea, Epistaxis, Erythema, Exudate, Dry mucosa, Other and Not Examined Neck: Supple Respiratory: Reports Airway patent, Breath sounds clear, Breath sounds equal, Breath sounds diminished, Respirations nonlabored and Other Cardiovascular: Reports RRR, Pulses normal, No rub and No murmur GI/: Reports Soft, Nontender, No masses and Bowel sounds normal Musculoskeletal: Reports Normal strength, ROM intact, No edema and No calf tenderness Skin: Reports Warm and Dry Neurological: Reports Sensation intact, Motor intact, Reflexes intact, Cranial nerves intact, Alert and Oriented Psychiatric: Reports Affect appropriate and Mood appropriate Lab/Tests/Diagnostic Imaging Lab/Tests/Diagnostic Imaging: Lab Review 10/23/20 10/23/20 10/23/20 13:38 13:38 13:38 WBC 2.66 L RBC 3.42 L Hgb 11.0 L Hct 31.5 L MCV 92.1 MCH 32.2 H MCHC 34.9 RDW Coeff of Aidan 12.3 Plt Count 97 L Immature Gran % (Auto) 0.4 Neut % (Auto) 77.0 H Lymph % (Auto) 15.4 Faulk % (Auto) 5.3 Eos % (Auto) 1.5 Baso % (Auto) 0.4 Neut # (Auto) 2.1 Lymph # (Auto) 0.4 L Faulk # (Auto) 0.1 L Eos # (Auto) 0.0 Baso # (Auto) 0.0 Immature Gran # (Auto) 0.0 Sodium 138.6 Potassium 3.88 Chloride 108.6 H Carbon Dioxide 22.1 Anion Gap 11.78 BUN 6.6 L Creatinine 0.76 Estimated GFR (MDRD) 89.00 BUN/Creatinine Ratio 8.68 Glucose 89.2 Calcium 8.30 L Total Bilirubin 0.53 AST 18.7 ALT 6.8 Alkaline Phosphatase 46.2 Total Protein 6.05 L Albumin 3.93 Globulin 2.12 Albumin/Globulin Ratio 1.85 Lipase 87.7 Serum , Qual Negative Urine Color Urine Clarity Urine pH Ur Specific [place] Urine Protein Urine Glucose (UA) Urine Ketones Urine Blood Urine Nitrite Urine Bilirubin Urine Urobilinogen Ur Leukocyte Esterase Urine Microscopic WBC Ur Squamous Epith Cells Urine Bacteria Adenovirus (PCR) B. pertussis DNA (PCR) B.parapertussis DNA PCR C. pneumoniae DNA (PCR) Coronavirus OC43 (PCR) Coronavirus HKU1 (PCR) Coronavirus 229E (PCR) Coronavirus NL63 (PCR) Human Metapneumovir PCR Influenza Type A (PCR) Influenza B (RT-PCR) M. pneumoniae (PCR) Parainfluenza 1 (PCR) Parainfluenza 2 (PCR) Parainfluenza 3 (PCR) Parainfluenza 4 (PCR) RSV (PCR) Entero/Rhino (PCR) SARS-CoV-2 (PCR) 10/23/20 10/23/20 10/24/20 16:05 16:28 05:18 WBC 4.09 L RBC 3.49 L Hgb 11.4 L Hct 32.9 L MCV 94.3 MCH 32.7 H MCHC 34.7 RDW Coeff of Aidan 12.3 Plt Count 90 L Immature Gran % (Auto) 0.2 Neut % (Auto) 70.0 Lymph % (Auto) 22.0 Faulk % (Auto) 4.9 Eos % (Auto) 2.7 Baso % (Auto) 0.2 Neut # (Auto) 2.9 Lymph # (Auto) 0.9 Faulk # (Auto) 0.2 L Eos # (Auto) 0.1 Baso # (Auto) 0.0 Immature Gran # (Auto) 0.0 Sodium Potassium Chloride Carbon Dioxide Anion Gap BUN Creatinine Estimated GFR (MDRD) BUN/Creatinine Ratio Glucose Calcium Total Bilirubin AST ALT Alkaline Phosphatase Total Protein Albumin Globulin Albumin/Globulin Ratio Lipase Serum , Qual Urine Color Yellow Urine Clarity Slightly Urine pH 7.0 Ur Specific [place] 1.025 Urine Protein Negative Urine Glucose (UA) Negative Urine Ketones Negative Urine Blood Negative Urine Nitrite Negative Urine Bilirubin Negative Urine Urobilinogen 0.2 Ur Leukocyte Esterase 1+ H Urine Microscopic WBC 5-10 Ur Squamous Epith Cells 5-10 Urine Bacteria 1+ Adenovirus (PCR) Not detected B. pertussis DNA (PCR) Not detected B.parapertussis DNA PCR Not detected C. pneumoniae DNA (PCR) Not detected Coronavirus OC43 (PCR) Not detected Coronavirus HKU1 (PCR) Not detected Coronavirus 229E (PCR) Not detected Coronavirus NL63 (PCR) Not detected Human Metapneumovir PCR Not detected Influenza Type A (PCR) Not detected Influenza B (RT-PCR) Not detected M. pneumoniae (PCR) Not detected Parainfluenza 1 (PCR) Not detected Parainfluenza 2 (PCR) Not detected Parainfluenza 3 (PCR) Not detected Parainfluenza 4 (PCR) Not detected RSV (PCR) Not detected Entero/Rhino (PCR) Not detected SARS-CoV-2 (PCR) Not detected Orders Category Date Time Status ADMIT OBSERVATION [PLACE PATIENT OBSERVATION] .TO ADMISSION 10/23/20 18:10 Active MEDSURG (MONITORED BED) EKG-(ED ONLY) Stat CARDIO 10/23/20 13:27 Completed EKG-(IP & OP ONLY) Routine CARDIO 10/24/20 06:00 Completed NEBULIZER TREATMENT Routine CARDIO 10/23/20 17:46 Active OXYGEN Routine CARDIO 10/23/20 17:42 Active SPUTUM INDUCTION PRN CARDIO 10/23/20 17:45 Completed ACTIVITY .Up ad Alyson CARE 10/23/20 17:42 Active INTAKE & OUTPUT Q8HR CARE 10/23/20 17:42 Active Notify RT of Treatment ONCE CARE 10/23/20 17:42 Active REMINDER: Notify Provider if temp >101.5 PRN CARE 10/23/20 17:42 Active REMINDER:Breath Sounds&Sputum Production BID CARE 10/23/20 17:42 Completed REMINDER:Notify Provider Pulse<60 or>130 PRN CARE 10/23/20 17:42 Active REMINDER:Notify if BP<90/60 or >170/110 PRN CARE 10/23/20 17:42 Active TELEMETRY MONITORING TELE CARE 10/23/20 18:11 Active VITAL SIGNS Q8HR CARE 10/23/20 17:42 Completed REGULAR DIET DIETARY 10/23/20 Dinner Ordered ED IV/MEDIPORT/POWERPORT .ONCE EMERGENCY 10/23/20 13:27 Active BLOOD CULTURE (ED ONLY) Stat LAB 10/23/20 17:02 Results CBC W/ AUTO DIFF Stat LAB 10/23/20 13:38 Completed CBC W/ AUTO DIFF Stat LAB 10/23/20 17:42 Completed COMPREHENSIVE METABOLIC PANEL Stat LAB 10/23/20 13:38 Completed KEPPRA/LEVETIRACETAM Routine LAB 10/24/20 Received LIPASE Stat LAB 10/23/20 13:38 Completed RESPIRATORY PANEL 2.1 (PCR) Stat LAB 10/23/20 16:28 Completed SERUM Stat LAB 10/23/20 13:38 Completed SPUTUM CULTURE Stat LAB 10/23/20 19:05 Results URINALYSIS C & S IF INDICATED Stat LAB 10/23/20 16:05 Completed URINE CULTURE Stat LAB 10/23/20 16:05 Results 0.9 % Sodium Chloride [Saline Flush] MEDS 10/23/20 13:27 Active 1 syr IVF PRN PRN Acetaminophen [Tylenol] MEDS 10/23/20 13:27 Discontinued 650 mg PO ONCE ONE Acetaminophen [Tylenol] MEDS 10/23/20 17:42 Active 650 mg PO Q8H PRN Albuterol Sulfate 0.083% Neb [Albuterol 0.083% Neb] MEDS 10/23/20 18:00 Discontinued 2.5 mg NEB RTQ6H Albuterol Sulfate 0.083% Neb [Albuterol 0.083% Neb] MEDS 10/23/20 20:00 Active 2.5 mg NEB RTQID Azithromycin Inj [Zithromax] 500 mg MEDS 10/24/20 09:00 Discontinued 0.9 % Sodium Chloride [Sodium Chloride] 250 ml IV DAILY Azithromycin [Zithromax] MEDS 10/24/20 09:00 Active 500 mg PO DAILY Azithromycin [Zithromax] MEDS 10/23/20 16:05 Discontinued 500 mg PO ONCE STA Ceftriaxone/D5w 1 gm Premix [Rocephin 1 gm/50 ml D5w] MEDS 10/24/20 09:00 Active 1 gm in 50 ml IV DAILY Ceftriaxone/D5w 1 gm Premix [Rocephin 1 gm/50 ml D5w] MEDS 10/23/20 16:05 Discontinued 1 gm in 50 ml IV ONCE Lamotrigine [Lamictal] MEDS 10/23/20 18:00 Discontinued 100 mg PO DAILY Levetiracetam [Keppra] MEDS 10/24/20 09:48 Active 500 mg PO BID Levetiracetam [Keppra] MEDS 10/23/20 13:27 Discontinued 500 mg PO ONCE ONE Ondansetron [Zofran Odt] MEDS 10/23/20 13:27 Discontinued 4 mg PO ONCE ONE Sodium Chloride 0.9% [Sodium Chloride] 500 ml MEDS 10/23/20 13:27 Discontinued IV BOLUS Topiramate [Topamax] MEDS 10/24/20 21:00 Active 100 mg PO BEDTIME Topiramate [Topamax] MEDS 10/24/20 10:00 Active 50 mg PO DAILY RESUSCITATION STATUS Routine OTHERS 10/23/20 18:27 Ordered CHEST, 1V AP ONLY Stat RADS 10/23/20 13:[address] CHEST W/O CONTRAST Stat RADS 10/23/20 15:05 Completed HAND, LEFT 3 VIEWS Stat RADS 10/23/20 13:27 Completed Medications Generic Name Dose Route Start Last Admin Trade Name Freq PRN Reason Stop Dose Admin Acetaminophen 650 mg 10/23/20 17:42 10/24/20 14:59 Acetaminophen 325 Mg Tablet PO 650 mg Q8H PRN Administration Mild/Moderate Pain Albuterol Sulfate 2.5 mg 10/23/20 20:00 10/25/20 04:55 Albuterol Sulfate 0.083% Vial.Neb NEB 2.5 mg RTQID BERNIE Administration Azithromycin 500 mg 10/24/20 09:00 10/24/20 09:42 Azithromycin 250 Mg Tablet PO 10/26/20 08:59 500 mg DAILY BERNIE Administration CEFTRIAXONE/D5W 1 GM PREMIX 1 gm in 50 mls @ 75 mls/hr 10/24/20 09:00 10/24/20 09:40 Rocephin 1 Gm/50 Ml D5w IV 10/27/20 08:59 75 mls/hr DAILY BERNIE Administration Levetiracetam 500 mg 10/24/20 09:48 10/24/20 21:07 Levetiracetam 500 Mg Tablet PO 500 mg BID BERNIE Administration Sodium Chloride 1 syr 10/23/20 13:27 10/24/20 05:30 0.9% Sodium Chloride 10 Ml Disp.Syrin IVF 1 syr PRN PRN Administration To flush IV Topiramate 50 mg 10/24/20 10:00 10/24/20 10:03 Topiramate 50 Mg Tablet PO 50 mg DAILY BERNIE Administration Topiramate 100 mg 10/24/20 21:00 10/24/20 21:06 Topiramate 50 Mg Tablet PO 100 mg BEDTIME BERNIE Administration Discontinued Medications Generic Name Dose Route Start Last Admin Trade Name Dianne PRN Reason Stop Dose Admin Acetaminophen 650 mg 10/23/20 13:27 10/23/20 13:50 Acetaminophen 325 Mg Tablet PO 10/23/20 13:28 650 mg ONCE ONE Administration Albuterol Sulfate 2.5 mg 10/23/20 18:00 10/23/20 18:27 Albuterol Sulfate 0.083% Vial.Neb NEB Not Given RTQ6H BERNIE Azithromycin 500 mg 10/23/20 16:05 10/23/20 16:56 Azithromycin 250 Mg Tablet PO 10/23/20 16:06 500 mg ONCE STA Administration Sodium Chloride 500 mls @ 500 mls/hr 10/23/20 13:27 10/23/20 13:56 Sodium Chloride IV 10/23/20 14:26 Not Given BOLUS STA CEFTRIAXONE/D5W 1 GM PREMIX 1 gm in 50 mls @ 75 mls/hr 10/23/20 16:05 10/23/20 16:56 Rocephin 1 Gm/50 Ml D5w IV 10/23/20 16:44 75 mls/hr ONCE ONE Administration Azithromycin 500 mg/ Sodium 250 mls @ 125 mls/hr 10/24/20 09:00 Chloride IV 10/26/20 10:59 DAILY BERNIE Lamotrigine 100 mg 10/23/20 18:00 10/24/20 09:52 Lamotrigine 25 Mg Tablet PO Not Given DAILY BERNIE Levetiracetam 500 mg 10/23/20 13:27 10/23/20 13:50 Levetiracetam 500 Mg Tablet PO 10/23/20 13:28 500 mg ONCE ONE Administration Ondansetron HCl 4 mg 10/23/20 13:27 10/23/20 13:50 Ondansetron Hcl 4 Mg Tab.Rapdis PO 10/23/20 13:28 4 mg ONCE ONE Administration Assessment (1) Pneumonia: Status: Acute Code(s): J18.9 - Pneumonia, unspecified organism SNOMED Code(s): 667601179 Qualifiers: Laterality: bilateral Lung location: upper lobe of lung Pneumonia type: due to unspecified organism Qualified Code(s): J18.9 - Pneumonia, unspecified organism (2) Seizure: Status: Acute Code(s): R56.9 - Unspecified convulsions SNOMED Code(s): 07077077 Plan Plan: Continue present therapy Discharge planning
[2020-10-25] MEDS: TOPAMAX PO SCH (10:21)
[2020-10-25] MEDS: ROCEPHIN 1 GM/50 ML D5W 1 GM/50 ML BAG IV SCH (10:21)
[2020-10-25] MEDS: ZITHROMAX PO SCH (10:21)
[2020-10-25] MEDS: KEPPRA PO SCH (10:22)
[2020-10-25 13:43] VITALS: BP 87/60; TEMP 98.6
--- NOTE | 2020-11-11 19:37 | PCM.DC ---
Final Diagnosis: Community Aquired Pneumonia Seizure Disorder (1) Pneumonia: Status: Acute Code(s): J18.9 - Pneumonia, unspecified organism SNOMED Code(s): 504539132 Qualifiers: Laterality: bilateral Lung location: upper lobe of lung Pneumonia type: due to unspecified organism Qualified Code(s): J18.9 - Pneumonia, unspecified organism (2) Seizure: Status: Acute Code(s): R56.9 - Unspecified convulsions SNOMED Code(s): 68004887 Reason for Hospitalization: This 30 year old Female patient was tr ansported to the ER on 10/23/2020 by EMS from the [facility] where she was observed having acute seizure episode. Stated was compliant with her seizure meds. After evaluation by Dr Wall in the ER, it was determined she has and acute pneumonia as well. It was deemed appropriate and necessary that she should be admitted to he hospitalist service for Observation and to initiate treatment for he pneumonia and monitor for additional neurological events. Appropriate standard of care initiated. Prognosis at Discharge: Mariely Condition at Discharge: Stable Medications at Discharge: Ambulatory Orders Medication Instructions Recorded levetiracetam [Keppra] 500 mg PO BID 10/24/20 topiramate [Topamax] 50 mg PO DAILY 10/24/20 topiramate [Topamax] 100 mg PO BEDTIME 10/24/20 Follow-ups: See PCP 1 week Discharge Disposition: Home Hospital Course: Patient treated with IV fluids, IV antibiotics and anti seiz ure meds Made satisfactory progress. Social Service assisted with discharge planning and home care plans Plan: Home Prescription meds and follow up care
== END 2020-10-25 14:57 | disposition home or self-care (01) ==
LOC: ED 12:55 → MEDSURG A 12:55
PROVIDERS: ADMIT Emergency Medicine; ATTEND Emergency Medicine
DX: Z20.822 Contact with and (suspected) exposure to COVID-19; R10.9 Unspecified abdominal pain; R56.9 Unspecified convulsions